=== PATIENT | female | born 1990 | race Caucasian/White ===

== ENCOUNTER → 2016-11-14 | Outpatient (CLI) | payer OTHER ==
[~2016-11-14] MED LIST: IBUP80TA PO; PERCOCET PO; VITAPRTA PO
[2016-11-14 18:45] LABS: BASO % 0.4 % (0.0-1.0); EOS # 0.2 K/mm3 (0.0-0.50); EOS % 2.3 % (0.0-3.0); LARGE UNSTAINED CELL # 0.2 K/mm3 (0.0-0.4); LARGE UNSTAINED CELL % 2.5 % (0.0-4.0); LYMPH # 1.8 K/mm3 (1.5-6.5); LYMPH % 24.8 % (24.0-44.0); MEAN CORPUSCULAR HEMOGLOBIN 29.8 pg (27.0-33.0); MEAN CORPUSCULAR VOLUME 90.3 fl (80.0-96.0); MONO # 0.4 K/mm3 (0.0-0.8); MONO % 5.2 % (0.0-5.0); NEUTROPHILS # 4.7 K/mm3 (1.8-7.7); NEUTROPHILS % 64.8 % (36.0-66.0); PLATELET COUNT, AUTOMATED 152 k/mm3 (150-450); RED CELL DISTRIBUTION WIDTH 12.2 % (11.5-14.5); WHITE BLOOD COUNT 7.3 K/mm3 (4.0-10.0)
[2016-11-17 10:29] LABS: HBsAg Prenatal NEGATIVE (NEGATIVE)
[2016-11-17 14:26] LABS: CONTROL LINE INT CTR LINE PRESENT; HIV SCRN NEGATIVE (NEGATIVE); HIV SCRN1 NEGATIVE (NEGATIVE)
== END ==
LOC: M SMT 13:42
PROVIDERS: ATTEND Obstetrics & Gynecology
DX: Z34.81 Encounter for supervision of other normal pregnancy, first trimester (principal)

== ENCOUNTER → 2017-01-28 | Outpatient (CLI) | payer MEDICAID, OTHER ==
--- NOTE | 2017-01-28 12:49 | REP ---
Obstetric ultrasound for anatomy: There is a single intrauterine gestation in a vertex presentation. There is movement and cardiac activity. The heart rate is 157 beats per minute. The placenta is anterior. There is no placenta previa or abruptio. Placenta demonstrates grade zero maturity. The amniotic fluid volume subjectively is normal. The cervix is 3.3 cm in length. Maternal adnexa and cul-de-sac are unremarkable. By today's ultrasound the gestational age is 19 weeks 2 days with an EH of 06/22/2017. The LMP is unknown. weight is 291 grams (0 pounds, 10 ounces). This is the 49th percentile for 19 weeks 2 days. The following anatomic structures are identified and are unremarkable: Cranium, choroid plexus, cavum septum pellucidum, cerebellum, cisterna magna, face, upper lip, lungs, four-chamber heart, cardiac right and left ventricular outflow tracts, diaphragm, stomach, cord insertion, three-vessel cord, kidneys, bladder, spine and upper lower extremities. No anomalies are identified. Signed by Robles Harris MD 01/28/2017 12:41 P
== END ==
LOC: M SMT 09:53
PROVIDERS: ATTEND Advanced Practice Midwife
DX: O34.211 Maternal care for low transverse scar from previous cesarean delivery (principal); Z36 Encounter for antenatal screening of mother; Z3A.19 19 weeks gestation of pregnancy

== ENCOUNTER → 2017-03-12 | Outpatient (CLI) | payer OTHER ==
[~2017-03-12] MED LIST changes: +ACET50TA PO; +IBUP-1114 PO
[2017-03-12 13:31] LABS: ADD MANUAL DIFFER YES; MEAN CORPUSCULAR HEMOGLOBIN 31.6 pg (27.0-33.0); MEAN CORPUSCULAR HGB CONC 34.3 g/dl (32.0-36.5); MEAN CORPUSCULAR VOLUME 92.3 fl (80.0-96.0); PLATELET COUNT, AUTOMATED 136 k/mm3 (150-450); WHITE BLOOD COUNT 7.9 K/mm3 (4.0-10.0)
[2017-03-12 14:26] LABS: BASOPHILS 1 % (0-4); EOSINOPHILS 2 % (0-5)
== END ==
LOC: M SMT 09:37
PROVIDERS: ATTEND Advanced Practice Midwife
DX: Z34.83 Encounter for supervision of other normal pregnancy, third trimester (principal)

== ENCOUNTER → 2017-04-30 | Outpatient (CLI) | payer OTHER ==
--- NOTE | 2017-05-01 14:30 | REP ---
Clinical: well-being. Spotting. Comparison: Technique: Transabdominal obstetrical ultrasound with color Doppler evaluation. Findings: Ultrasound examination demonstrates single live advanced gestation in cephalic presentation. motion was identified by technologist. Placenta is noted posterolaterally towards the fundus and grade 1 without evidence for placenta previa or abruption. Cervix measures 3.4 cm in length and appears closed. Amniotic fluid volume is within normal limits. Nuchal cord noted. heart rate equals 150 beats per minute. Amniotic fluid index equals 9.5 cm (8.5 - 24.3). Umbilical cord SD ratio = 2.80 (2.26 - 3.26). Impression: Single live intrauterine in cephalic presentation. Cervix measures 3.4 cm length and appears closed. Amniotic fluid index within normal limits. Signed by Ar Ferguson MD 04/30/2017 10:17 P
== END ==
LOC: M SMT 10:16
PROVIDERS: ATTEND Advanced Practice Midwife
DX: O26.853 Spotting complicating pregnancy, third trimester (principal); Z3A.32 32 weeks gestation of pregnancy

== ENCOUNTER → 2017-05-28 | Outpatient (REF) | payer OTHER, MEDICAID | LOC: M LAB REF 12:41 | PROVIDERS: ATTEND Advanced Practice Midwife | DX: Z34.83 Encounter for supervision of other normal pregnancy, third trimester (principal) ==

== ENCOUNTER 2017-06-21 05:55 | Outpatient (CLI) | payer MEDICAID, OTHER ==
[~2017-06-21] VITALS: Ht 160 cm; Wt 76.0 kg
[~2017-06-21 05:55] MED LIST changes: -ACET50TA PO; -IBUP-1114 PO
== END 2017-06-21 08:01 | disposition home or self-care (01) ==
LOC: M LDO 05:55
PROVIDERS: ATTEND Obstetrics & Gynecology
DX: O47.1 False labor at or after 37 completed weeks of gestation (principal); Z3A.40 40 weeks gestation of pregnancy

== ENCOUNTER 2017-06-25 05:42 | Inpatient (IN) | payer OTHER ==
[2017-06-25] VITALS (14 sets, daily range): BP systolic 106–137; BP diastolic 53–82
[~2017-06-25] VITALS: Ht 160 cm; Wt 77.6 kg
[2017-06-25] MEDS ORDERED: LACTATED RINGER'S 1000 ML IV STA (06:50)
[2017-06-25 07:15] LABS: MEAN CORPUSCULAR HEMOGLOBIN 30.3 pg (27.0-33.0); MEAN CORPUSCULAR HGB CONC 33.7 g/dl (32.0-36.5); PLATELET COUNT, AUTOMATED 119 10^3/uL (150-450); RED CELL DISTRIBUTION WIDTH 13.4 % (11.5-14.5); WHITE BLOOD COUNT 17.2 10^3/uL (4.0-10.0)
[2017-06-25] MEDS ORDERED: ACET50TA PO (07:34)
[2017-06-25] MEDS ORDERED: BUTORPHANOL 2 MG/ML INJ (J0595) IV ONE (07:45)
[2017-06-25] MEDS ORDERED: PROMETHAZINE INJ 25 MG/ML VIAL (J2550) IV PRN (07:45)
[2017-06-25] MEDS: PRENATAL VITAMINS CHEWABLE TABLET PO SCH (09:00)
[2017-06-25] MEDS ORDERED: OXYTOCIN 30 UNITS IN 0.9% NaCl 500ML IV BAG (J2590) As Ordered ONE (09:40)
[2017-06-25] MEDS ORDERED: METHYLERGONOVINE MALEATE 0.2 MG TAB PO PRN (14:00)
[2017-06-25] MEDS ORDERED: LIDOCAINE 1% MDV INJ 50 ML VIAL INFIL ONE (14:00)
[2017-06-25] MEDS ORDERED: RHOGAM 300 MCG (1500 IU) INJ (J2790) IM SCH (14:00)
[2017-06-25] MEDS ORDERED: DOCUSATE SODIUM 100 MG CAP PO PRN (14:00)
[2017-06-25] MEDS ORDERED: ACETAMINOPHEN 500 MG TAB PO PRN (14:00)
[2017-06-25] MEDS ORDERED: DIBUCAINE 1% OINTMENT 30GM TOP PRN (14:00)
[2017-06-25] MEDS ORDERED: MEASLES,MUMPS,RUBELLA VACCINE INJ (MMR-II) (90707) SC SCH (14:00)
[2017-06-25] MEDS ORDERED: OXYTOCIN DRIP 30 UNITS in APPROPRIATE DILUENT 1 EA IV SCH (14:00)
[2017-06-25] MEDS ORDERED: MOM 30ML SUSPENSION UDC PO PRN (14:00)
--- NOTE | 2017-06-25 14:44 | DN ---
DATE OF DELIVERY: 06/25/2017 GENDER: Male. SCORE: 8 and 8. WEIGHT: 8 pounds 7 ounces or 3830 grams. TIME OF : 0448 hours. LACERATIONS: Second degree midline laceration with a left periurethral laceration. COUNTS: 3 Sharps removed from delivery field. 10 laparotomy sponges accounted for prior to and after delivery. ANESTHESIA: None. DELIVERY NOTE: On 06/25/2017, at 1248 hours, Mrs. Dozier, a 27-year-old, 2, now para 2, had a vaginal after section of a liveborn male . scores were 8 and 8. Weight was 8 pounds 7 ounces or 3830 grams. Head was delivered left occiput anterior (MYA). There was a tight nuchal cord, which was manually reduced, followed by delivery of right anterior shoulder, left posterior shoulder and corpus. Infant was handed to mom with a good cry. Cord was clamped times two and was cut. Cord blood was then obtained. Placenta was drained and delivered grossly intact. A premixed bag of 500 mL of normal saline with 30 units of Pitocin was then bolused along with uterine massage until the uterus was firm. On inspection, there was a second degree midline laceration with a left labial tear. These areas where infused wih 1% lidocaine and was repaired with #3-0 Vicryl Rapide as well as #4-0 Vicryl. On re-inspection, cervix, vagina and perineum was grossly intact. Mom and baby recovered in stable condition. The couple have decided to name their son, Thomas. ROYAL
[2017-06-25] MEDS: IBUPROFEN 800 MG TAB PO PRN ×2 (14:50→23:18)
[2017-06-26 06:00] VITALS: BP 111/56
[2017-06-26] MEDS: PRENATAL VITAMINS CHEWABLE TABLET PO SCH (08:02)
[2017-06-26] MEDS: IBUPROFEN 800 MG TAB PO PRN ×2 (08:03→20:52)
[2017-06-26 18:00] VITALS: BP 105/57
[2017-06-27] MEDS: PRENATAL VITAMINS CHEWABLE TABLET PO SCH (09:19)
[2017-06-27] MEDS ORDERED: IBUP-1114 PO (11:50)
== END 2017-06-27 12:50 | disposition home or self-care (01) | DRG 560 ==
LOC: M LDO 05:42 → M LDI 06:41 → M OBS 15:28
PROVIDERS: ADMIT Advanced Practice Midwife; ATTEND Advanced Practice Midwife
PROC: 10E0XZZ Delivery of Products of Conception, External Approach (ICD-10-PCS; principal; 2017-06-25)
PROC: 0KQM0ZZ Repair Perineum Muscle, Open Approach (ICD-10-PCS; 2017-06-25)
PROC: 0UQM0ZZ Repair Vulva, Open Approach (ICD-10-PCS; 2017-06-25)
DX: O48.0 Post-term pregnancy (principal); O34.211 Maternal care for low transverse scar from previous cesarean delivery; Z37.0 Single live birth; Z3A.40 40 weeks gestation of pregnancy; O22.13 Genital varices in pregnancy, third trimester; Z79.899 Other long term (current) drug therapy; O70.1 Second degree perineal laceration during delivery; O71.82 Other specified trauma to perineum and vulva; O69.2XX0 Labor and delivery complicated by other cord entanglement, with compression, not applicable or unspecified

== ENCOUNTER → 2017-11-12 | Outpatient (REF) | payer OTHER, MEDICAID ==
[2017-11-18 00:06] LABS: HPV HYBRID CAPTURE II Negative (Negative)
== END ==
LOC: M LAB REF 18:43
DX: Z12.4 Encounter for screening for malignant neoplasm of cervix (principal); R87.610 Atypical squamous cells of undetermined significance on cytologic smear of cervix (ASC-US)

== ENCOUNTER → 2020-07-20 | Outpatient (REF) | payer OTHER ==
[~2020-07-20] MED LIST changes: +IBUP-1114 PO; +MAPA500T2 PO
[2020-07-20 14:17] LABS: HEMATOCRIT 41.1 % (36.0-47.0); HEMOGLOBIN 13.2 g/dl (12.0-15.5); MEAN CORPUSCULAR HEMOGLOBIN 29.8 pg (27.0-33.0); MEAN CORPUSCULAR HGB CONC 32.1 g/dl (32.0-36.5); MEAN CORPUSCULAR VOLUME 92.8 fl (80.0-96.0); PLATELET COUNT, AUTOMATED 165 10^3/uL (150-450); RED BLOOD COUNT 4.43 10^6/uL (4.00-5.40)
[2020-07-20 15:22] LABS: HEPATITIS C VIRUS ABY INDEX 0.1 INDEX (<0.8); HIV 1&2 SCREEN CENTAUR NEGATIVE (NEGATIVE)
[2020-07-20 16:01] LABS: CHLAMYDIA DNA AMPLIFICATION NEGATIVE (NEGATIVE); GC DNA AMPLIFICATION NEGATIVE (NEGATIVE)
== END ==
LOC: M PLALAB 10:39
PROVIDERS: ATTEND Obstetrics & Gynecology
DX: Z34.91 Encounter for supervision of normal pregnancy, unspecified, first trimester (principal); Z3A.00 Weeks of gestation of pregnancy not specified

== ENCOUNTER → 2020-10-04 | Outpatient (CLI) | payer OTHER ==
--- NOTE | 2020-10-05 04:22 | REP ---
INDICATION: ANATOMY COMPARISON: None. TECHNIQUE: Transabdominal obstetrical ultrasound with color Doppler evaluation. FINDINGS: Examination demonstrates a single live intrauterine in cephalic presentation. motion is identified by technologist. Placenta is noted posterior and grade 1 without evidence for placenta previa or abruption. Amniotic fluid volume is normal. Cervix measures 3.0 cm in length and appears closed.. Gestational age by current measurements 19 weeks 4 days with EH 02/24/2021. FHR equals 144 beats per minute. BPD: 4.3 cm 18 weeks 6 days HC: 16.3 cm 19 weeks 0 days AC: 14.6 cm 19 weeks 6 days FL: 3.2 cm 19 weeks 6 days HL: 3.0 cm 19 weeks 6 days HC/AC: 1.12 Estimated weight 313 grams (60thpercentile). Anatomical assessment demonstrates normal structures including cranium, choroid plexus, cavum, cerebellum/posterior fossa, facial features, lungs, four-chamber heart/ventricular outflow tracts, diaphragm, stomach, cord insertion/three-vessel cord, kidneys/bladder, spine, and extremities. IMPRESSION: Single live intrauterine in cephalic presentation demonstrating appropriate estimated weight. Anatomical assessment is complete and normal. <Electronically signed by Ar Ferguson > 10/05/20 [id number]
== END ==
LOC: M WHC 10:30
PROVIDERS: ATTEND Advanced Practice Midwife
DX: Z36.89 Encounter for other specified antenatal screening (principal); Z3A.19 19 weeks gestation of pregnancy

== ENCOUNTER → 2020-12-12 | Outpatient (REF) | payer OTHER ==
[2020-12-12 14:11] LABS: HEMATOCRIT 33.4 % (36.0-47.0); HEMOGLOBIN 10.8 g/dl (12.0-15.5); MEAN CORPUSCULAR HEMOGLOBIN 30.5 pg (27.0-33.0); MEAN CORPUSCULAR HGB CONC 32.3 g/dl (32.0-36.5); MEAN CORPUSCULAR VOLUME 94.4 fl (80.0-96.0); PLATELET COUNT, AUTOMATED 132 10^3/uL (150-450); RED BLOOD COUNT 3.54 10^6/uL (4.00-5.40); WHITE BLOOD COUNT 7.8 10^3/uL (4.0-10.0)
== END ==
LOC: M PLALAB 10:37
PROVIDERS: ATTEND Advanced Practice Midwife
DX: O34.211 Maternal care for low transverse scar from previous cesarean delivery (principal)

== ENCOUNTER → 2021-01-30 | Outpatient (REF) | payer OTHER | LOC: M SFHCWAGY 16:58 | PROVIDERS: ATTEND Advanced Practice Midwife | DX: Z36.85 Encounter for antenatal screening for Streptococcus B (principal); Z3A.36 36 weeks gestation of pregnancy ==

== ENCOUNTER 2021-02-11 21:55 | Inpatient (IN) | payer OTHER ==
[~2021-02-11] VITALS: Ht 160 cm; Wt 78.2 kg
[2021-02-11 22:24] VITALS: BP 111/72
[2021-02-11 23:06] LABS: HEMATOCRIT 38.7 % (36.0-47.0); HEMOGLOBIN 12.6 g/dl (12.0-15.5); MEAN CORPUSCULAR HEMOGLOBIN 30.6 pg (27.0-33.0); MEAN CORPUSCULAR HGB CONC 32.6 g/dl (32.0-36.5); MEAN CORPUSCULAR VOLUME 93.9 fl (80.0-96.0); PLATELET COUNT, AUTOMATED 128 10^3/uL (150-450); RED BLOOD COUNT 4.12 10^6/uL (4.00-5.40); WHITE BLOOD COUNT 10.1 10^3/uL (4.0-10.0)
[2021-02-11] MEDS ORDERED: METHYLERGONOVINE MALEATE 0.2 MG/ML VIAL (J2210) IM PRN (23:25)
[2021-02-11] MEDS ORDERED: CARBOPROST TROMETHAMINE 250 MCG/ML AMP IM PRN (23:25)
[2021-02-11] MEDS ORDERED: OXYTOCIN DRIP 30 UNITS in IV 1 EA IV PRN (23:25)
[2021-02-11] MEDS ORDERED: LIDOCAINE 1% MDV 20ML VIAL INFIL PRN (23:25)
[2021-02-11] MEDS ORDERED: TRANEXAMIC ACID INJection 1,000 MG in NS 100 ML IV PRN (23:25)
[2021-02-11] MEDS ORDERED: LACTATED RINGER'S 1000 ML IV STA (23:25)
[2021-02-12] VITALS (23 sets, daily range): BP systolic 102–134; BP diastolic 55–91
--- NOTE | 2021-02-12 00:09 | HPEPDOC ---
Obstetrical History & Physical General Date of Admission Feb 11, 2021 at 23:13 Primary Care Physician: URI GASTELUM CNM History of Present Illness Shelby is a 30-year-old female who is a at 38.3 weeks gestation with an EH of 02/22/21 based off of her LMP and consistent with her first trimester u ltrasound. She initiated care in her first trimester of at [facility]. Her has been complicated by a history of a previous section followed by a successful , thrombocytopenia and varicosities. Shelby states she desires to attempt another vaginal delivery. She reports leaking of clear fluid that started at 1830. She reports contractions and active movement. She denies vaginal bleeding. Chief Complaint: Active Labor, Rupture of membranes Information Provided By: Patient Age: 30 : 3 Term: 2 Pre-term: 0 Abortions: 0 Livin Care Care: Good Care Dating Final EDC: Feb 22, 2021 Final EDC by: LMP EGA at Admission: 38.3 Antepartum Course Diagnos(e)s previous section followed by a successful thrombocytopenia Varicosities Height (inches): 63 Pre- weight (lbs.): 132 Admission Weight (lbs.): 167 Change in Weight (lbs.): 35 Past Medical History Past Obstetrical History #1: Past Obstetrical History: Primgravida Gestation: 39 Type of Delivery: Ceserean section (12/2014) Sex of Infant: Male (weight 7 lbs 6 oz) Complications: Yes (breech presentation) Past Obstetrical History #2: Past Obstetrical History: Multigravida Date of Delivery: Jun 25, 2017 Gestation: 40.4 Type of Delivery: Spontaneous Vaginal Del. 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 Past Medical History Medical History Varicosities Surgical History: section, [place] teeth Family History Significant Family History: Diabetes, Heart disease, Other (Crohns) Social History Social history Works for [employer] Marital Status: Family situation: Spouse/partner home Psychosocial History: No pertinent psych hx * Smoker: non-smoker Alcohol: Denies Drugs: denies Abuse Violence Screening Have you been hit/kicked/slapp: No Have you been sexually assault: No Allergies Coded Allergies: No Known Allergies (Unverified , 06/21/17) Medications Scheduled Multivit/Min/Pren/Fol Ac/Iron ( Vitamin Plus Low Iron) 1 Tab Tab, 1 TAB PO DAILY for NUTRITIONAL SUPPORT Scheduled PRN Acetaminophen (Mapap) 500 Mg Tab, 1,000 MG PO Q6HP PRN for PAIN OR FEVER Ibuprofen (Ibuprofen) 400 Mg Tab, 800 MG PO Q8HP PRN for PAIN Physical Examination Physical Examination GENERAL: Alert and oriented times three. Respiratory: regular rate without use of accessory muscles. ABDOMEN: Gravid and non-tender to touch. FETUS: Is vertex (VTX) by sterile vaginal examination (SVE), fetus is vertex (VTX) by Italo. EXTREMITIES: 1+ pitting edema bilateral feet and ankles. No clonus. Deep tendon reflexes (DTRs) + 2. Spider veins and varicosities noted. Vital Signs/I&O Vital Signs Date Time Temp Pulse Resp B/P (MAP) Pulse Ox O2 Delivery O2 Flow Rate FiO2 02/11/21 22:24 98.6 83 18 111/72 (85) 99 Room Air Laboratory Data 24H LABS Laboratory Tests 2 02/11/21 22:57: Nucleated Red Blood Cells % (auto) 0.0 02/11/21 23:19: Serology Scanned Report Hepatitis B Testing CBC/BMP Laboratory Tests 02/11/21 22:57 Urine Culture: No Growth Pertinent Laboratoy Data Blood Type: O+ RBC Antibody Screen: Negative HIV: Negative Hepatitis B: Negative Hepatitis C: Negative Rapid Plasma Reagin: Nonreactive Chlamydia/Gonorrhea: Negative Group B Streptococcus: Negative Glucose Tolerance Test: 116 Vaginal Examination Dilation: 4 cm Effacement: other (75%) Station: -2 Cervical Consistency: Soft Cervical Position: Anterior (+ Nitrazine from soaked pad that patient wore in) Presentation: Cephalic presentation Assessment Heart Rate (FHR): 115 Variability: Moderate Accelerations: Positive Decelerations: None Tocometer Contractions: Yes Frequency: every 3-7 min. Multi-drug resistant Organism: No history of MDRO Assessment/Plan Assessment IUP at 38.3 weeks gestation SROM latent labor GBS negative history of previous section desires TOLAC Plan Admit to L&D after collaborated with Dr. Bates. Patient desires TOLAC. Risks/benefits alternatives reviewed. OOB ad yuni. Diet: clears. Group B Streptococcus (GBS) negative. Labs and intravenous (IV) per unit protocol. Anesthesia notified of patient being in department. Counseled on Pitocin for augmentation if patient doesn't start active labor by 0600. Lactated Ringers (LR): Bolus 800 mL prior to epidural if she desires, then at 125 mL/hr. Anticipate cervical change. C-S as appropriate. URI GASTELUM CNM Feb 12, 2021 00:09
[2021-02-12] MEDS ORDERED: LR 1,000 ML IV SCH (08:05)
[2021-02-12] MEDS ORDERED: OXYTOCIN DRIP 30 UNITS in IV 1 EA IV SCH (08:05)
--- NOTE | 2021-02-12 08:10 | IPNPDOC ---
Obstetrical Progress Note Date of Service Feb 12, 2021 Subjective 30 yo at 38 4/7 weeks gestation. Pain from contractions is mild. Leaking small amounts of fluid. Objective Vital Signs Date Time Temp Pulse Resp B/P (MAP) Pulse Ox O2 Delivery O2 Flow Rate FiO2 02/12/21 07:19 98.5 78 20 124/77 (93) 99 Room Air Assessment Variability: Moderate Accelerations: Positive Decelerations: None Heart Rate Tracing: Category I Tocometer Contractions: Yes Frequency: irregular Duration: less than 60 seconds Strength: palpated as mild Sterile Vaginal Examination Dilation: 4 cm Effacement (%): 70% Station: -2 Cervical Consistency: Soft Postion/Presentation: Cephalic presentation Assessment and Plan Age: 30 : 3 Term: 0 Pre-term: 0 Abortions: 0 Livin Status: Reassuring Additional Comments 30 yo at 38 4/7 weeks, TOLAC, early labor AROM of forebag performed Pt may require Pitocin augmentation if intensity of contractions does not increase Pt aware of risks of TOLAC MEGHA WHITAKER MD Feb 12, 2021 08:10
[2021-02-12] MEDS ORDERED: DOCUSATE SODIUM 100MG CAPSULE PO PRN (14:35)
[2021-02-12] MEDS ORDERED: IBUPROFEN 600MG TAB PO PRN (14:35)
[2021-02-12] MEDS ORDERED: METHYLERGONOVINE MALEATE 0.2 MG TAB PO PRN (14:35)
[2021-02-12] MEDS ORDERED: DIBUCAINE 1% OINTMENT 30GM TOP PRN (14:35)
[2021-02-12] MEDS ORDERED: RHOGAM 300 MCG (1500 IU) INJ (J2790) IM SCH (14:35)
[2021-02-12] MEDS ORDERED: OXYTOCIN DRIP 30 UNITS in IV 1 EA IV ONE (14:35)
[2021-02-12] MEDS ORDERED: IBUPROFEN 800 MG TAB PO PRN (14:35)
[2021-02-12] MEDS ORDERED: ACETAMINOPHEN TAB 650MG DOSE (2X325MG) PO PRN (14:35)
[2021-02-12] MEDS ORDERED: ACETAMINOPHEN 500 MG TAB PO PRN (14:35)
[2021-02-12] MEDS ORDERED: MEASLES,MUMPS,RUBELLA VACCINE INJ (MMR-II) (90707) SC SCH (14:35)
--- NOTE | 2021-02-12 14:39 | DNPDOC ---
[facility] Delivery Note Delivery Note DATE OF DELIVERY: February 12, 2021 PREDELIVERY DIAGNOSIS: 38-3/7 weeks' gestation and labor, TOLAC. POST DELIVERY DIAGNOSIS: Delivered. PROCEDURE: Spontaneous vaginal delivery, successful . DIGITAL MUSIC INSTRUCTOR: Dr. Megha Whitaker MD ANESTHESIA: none. ESTIMATED BLOOD LOSS: 300 mL. FINDINGS: 6 pound 9 ounce male , Score 9/9. DELIVERY SUMMARY: Patient is a 30-year-old 3 now para 3 who was admitted to labor and delivery for early labor after spontaneous rupture of membranes. She had a history of one prior section. She had Pitocin augmentation. After a second stage consisting of one push she had a spontaneous vaginal delivery of a 6 lb. 9 oz male . No nuchal cord. Shoulders delivered with ease. Placenta delivered spontaneously and appeared intact. Pt received IV Pitocin immediately after delivery of the placenta. A first degree perineal laceration was repaired with 2-O Chromic under local anesthesia in the usual fashion. Sponge and needle counts correct. MEGHA WHITAKER MD Feb 12, 2021 14:39
[2021-02-12] MEDS ORDERED: SLF 3 ML SYR IV PRN (17:30)
[2021-02-12] MEDS: SLF 3 ML SYR IV SCH (22:15)
[2021-02-13] MEDS: SLF 3 ML SYR IV SCH ×2 (05:52→14:00)
[2021-02-13 06:00] VITALS: BP 101/58
[2021-02-13] MEDS: PRENATAL VITAMINS CHEWABLE TABLET PO SCH (09:01)
[2021-02-13 17:43] VITALS: BP 110/68
[2021-02-14 06:07] VITALS: BP 122/74
[2021-02-14] MEDS: PRENATAL VITAMINS CHEWABLE TABLET PO SCH (09:00)
== END 2021-02-14 11:55 | disposition home or self-care (01) | DRG 560 ==
LOC: M LDO 21:55 → M LDI 23:13 → M OBS 02-12 17:19
PROVIDERS: ADMIT Advanced Practice Midwife; ATTEND Specialist
PROC: 10E0XZZ Delivery of Products of Conception, External Approach (ICD-10-PCS; principal; 2021-02-12)
PROC: 10907ZC Drainage of Amniotic Fluid, Therapeutic from Products of Conception, Via Natural or Artificial Opening (ICD-10-PCS; 2021-02-12)
PROC: 0HQ9XZZ Repair Perineum Skin, External Approach (ICD-10-PCS; 2021-02-12)
DX: O34.219 Maternal care for unspecified type scar from previous cesarean delivery (principal); Z3A.38 38 weeks gestation of pregnancy; Z37.0 Single live birth; O99.12 Other diseases of the blood and blood-forming organs and certain disorders involving the immune mechanism complicating childbirth; D69.6 Thrombocytopenia, unspecified; O70.0 First degree perineal laceration during delivery